=== PATIENT | male | born 1990 | race Caucasian/White ===

== ENCOUNTER → 2016-06-30 06:28 | Day surgery (SDC) | payer OTHER ==
--- NOTE | 2016-06-24 15:07 | HP ---
PREOPERATIVE HISTORY AND PHYSICAL: DATE OF SURGERY: 06/30/16 - [facility] PROCEDURE: Revision of right shoulder subpectoral biceps tenodesis, possible arthroscopic labral repair and possible decompression. CHIEF COMPLAINT: Right shoulder pain. HISTORY OF PRESENT ILLNESS: This is a 26-year-old male who presents to the clinic with history of a right shoulder labral repair. He presents with persistent pain, especially with rock climbing and overhead movement. He has failed conservative measures and has, therefore agreed to undergo a revision of right shoulder subpectoral biceps tenodesis, possible arthroscopic labral repair and possible decompression. PAST MEDICAL HISTORY: Bipolar depression. PAST SURGICAL HISTORY: LASIK eye surgery in 2017 and labral repair of the right shoulder in 2015, tonsillectomy, and sinus surgery. Denies complications with anesthesia. MEDICATIONS: 1. Seroquel 25 mg 1 by mouth at bedtime. 2. Zoloft 75 mg 1 by mouth every day. 3. Lamictal 25 mg 1 by mouth daily. ALLERGIES: No known drug allergies. FAMILY HISTORY: Denies pertinent family history. SOCIAL HISTORY: He lives with his roommate. He is a student at [employer]. He denies tobacco. He reports occasional alcohol consumption. REVIEW OF SYSTEMS: A 14-point review of systems was reviewed with the patient and positive for current complaints and recent removal of a skin lesion on his chest, otherwise negative. Denies chest pain, shortness of breath, history of DVT or PE, bleeding disorder or complications with anesthesia. PHYSICAL EXAMINATION GENERAL: Well-developed, well-nourished 26-year-old male in no acute distress. VITAL SIGNS: Height 70.5, weight 155. Pulse 72, blood pressure 106/78, respiratory rate 16. BMI 23.3. HEENT: Normocephalic, atraumatic, PERRLA. NECK: Supple. Throat clear. PULMONARY: Lungs are clear to auscultation bilaterally. No wheezing, rhonchi, or rales. CARDIOVASCULAR: Regular rate and rhythm. S1 and S2. No murmurs, gallops, or rubs. No edema. ABDOMEN: Positive bowel sounds. Soft and nontender. NEUROLOGIC: Alert and oriented x3. Cranial nerves are grossly intact. Sensation is intact to light touch distally. MUSCULOSKELETAL: Right upper extremity skin is intact. No erythema or warmth. Well-healed surgical incisions. Forward flexion 180 degrees, abduction to 180, external rotation to 75, internal rotation to T8. +5/5 strength to supraspinatus and infraspinatus bear hug. Positive [place], mildly positive Neer and Collado, mildly positive Latha test, 1 to 2+ anterior-posterior shift, +2 radial pulses. Sensation is intact to intact to light touch distally. DIAGNOSTIC STUDIES/LAB DATA: MR arthrogram demonstrates a SLAP tear with some evidence of anterior labrum being retorn, as well as patulous posterior capsule that may be a partial tear of the posterior labrum. IMPRESSION: Right shoulder superior labral tear. PLAN: The patient is scheduled to undergo a revision right shoulder subpectoral biceps tenodesis, possible arthroscopic labral repair and possible decompression with Dr. Bach on 06/30/16. He will return to office 10 to 14 days postoperatively for followup and suture removal. Percocet will be used for postoperative pain management. SVITLANA RIBEIRO [id number]/[facility] #: [id number] MTDDeepa
[~2016-06-30 06:28] MED LIST: Atracurium* 10 MG/ML 10 ML VIAL ONE; Buffered Lidocaine 1% SYRIN* 3 ML/SYR SYRINGE INTRADERM ONE; Bupivacaine 0.25% SDV* 30 ML ONE; Dexamethasone IV* 4 MG/ML 1 ML (4 MG) IV SLOW PU ONE; Dexamethasone IV* 4 MG/ML 1 ML (4 MG) ONE; Famotidine IV* 10 MG/ML 2 ML (20 mg) IV ONE; Famotidine IV* 10 MG/ML 2 ML (20 mg) ONE; Midazolam* 1 MG/ML 5 ML VIAL (5 MG) ONE; Ondansetron INJ* 2 MG/ML VIAL IV PRN; ROPIVACAINE 5 MG/ML 30 ML BTL (0.5%) ONE; ceFAZolin 2 GM PREMIX(*) 2 GM/50 ML BAG IVPB ONE; fentaNYL* 50 MCG/ML 2 ML VIAL (100 MCG VIAL) IV PRN; fentaNYL* 50 MCG/ML 2 ML VIAL (100 MCG VIAL) ONE; oxyCODONE/Acetamin 5/325 MG* TAB PO PRN
[2016-06-30 12:16] VITALS: BP 131/81
--- NOTE | 2016-07-01 01:50 | OP ---
DATE OF OPERATION: 06/30/16 - [facility] DATE OF : 89 ATTENDING SURGEON: Thony Bach MD REFINERY OPERATOR LIGHT ENDS RECOVERY: SVITLANA Jones. An electrical assistant was needed for the entirety of case to help with positioning, retraction, and was utilized throughout all portions of the case. ANESTHESIOLOGIST: Dr. Lombardi. ANESTHESIA: General with interscalene block. PREOPERATIVE DIAGNOSIS: Right shoulder bicipital tendonitis impingement as well as possible labral re-tear. POSTOPERATIVE DIAGNOSIS: Bicipital tendonitis, stable labrum and subacromial impingement. OPERATIVE PROCEDURES: 1. Right shoulder arthroscopy with glenohumeral debridement. 2. Subacromial decompression with acromioplasty. 3. Subpectoral biceps tenodesis. IMPLANTS: One Q-Fix anchor. INDICATIONS: Eliceo is a 26-year-old male who had a previous shoulder anterior and posterior labral repair in 2016. He has had persistent symptoms of bicipital tendonitis and a SLAP tear with some subtle instability sensation. He has failed conservative management and has elected to proceed with operative management. The risks and benefits of the surgery were discussed at length but not limited to bleeding; infection; damage to nerves, vessels, and surrounding structures; retear; failure of the repair; risk of anesthesia; stiffness; persistent pain; scarring; need for further surgery; risk of arthritis; and risk of DVT and he has elected to proceed. DESCRIPTION OF PROCEDURE: The patient was greeted in the preoperative area by the attending surgeon. Correct extremity was marked and consent was confirmed. The patient was brought back to the operating suite where he was placed in supine position on the operating table. He then underwent interscalene nerve block, which he tolerated without difficulty. He then underwent general anesthesia endotracheal intubation after which the examination placed and the examination of the shoulder was done. He was found to have 1+ anterior and posterior glide and an unimpressive sulcus sign and full range of motion. The patient was then placed in left lateral decubitus position and supported with pegboard. All bony prominences were padded. The right shoulder was then suspended from the traction frame with 10 pounds of traction. After which the right shoulder was prepped and draped in the usual sterile fashion with chlorhexidine soap and alcohol wipe and a final prep with ChloraPrep. After appropriate surgical pause indicating side, site, procedure, and administration of antibiotics, the standard postero-lateral portal was made sharply with an 11 blade. The scope was introduced into the joint. The joint was very difficult to get in to due to the previous surgery, but eventually the joint was accessed atraumatically. The glenoid was found to have grade 1 changes with mild fraying in the humeral head with grade 1 changes with no unstable flaps. There was a Hill-Sachs lesion, which was very mild. The anteroposterior labrum were intact; however, there was unstable fraying. The biceps was identified and the superior labrum was intact, but there was abundant tendonitis and tendinopathy apparent. The undersurface of the rotator cuff was intact, but there was evidence of jaime damage. The subscapularis was intact. The inferior recess was intact. The shoulder appeared to be sitting appropriately. There was no evidence of any recurrent instability and no evidence of a labral tear. At this point, the anterior portal was made in an outside-in fashion. The shaver was used to do a small chondroplasty as well as debride the anteroposterior labrum. The biceps was then tenotomized using arthroscopic biter and the stump was debrided back. All fluid and debris was removed from the joint intraarticularly and the scope was placed in the subacromial space. The lateral portal was made in an outside-in fashion. There was abundant bursa that was present. The rotator cuff was examined and found to be intact. The bursa was removed in its entirety and the undersurface of the acromion was skeletonized using the electrocautery device. There was found to have a moderate-sized spur and 4.0 oval bur was then used to do an acromioplasty, which extended into coplaning the distal clavicle; however, the patient did not have distal clavicle symptoms, therefore, no distal clavicle excision was done, just the inferior spur was removed. All loose debris and tissue were removed and at this point, attention was directed to the biceps tenodesis. The bed was air-planed to the right side and the anterior aspect of the shoulder was re-prepped using ChloraPrep. A 15- blade was then used to make an incision in line with the biceps tendon. Soft tissue dissection was done with Metzenbaum scissors and until the pec tendon was identified. Once this was done , the remainder of the dissection was done bluntly. The [place] blade was then used to elevate the pec superiorly. The biceps was then palpated in the groove. A small flory in the biceps groove was then made using the electrocautery device. The biceps was removed and found to have abundant synovitis as well as tendonitis and mild tendinopathy as well. This was scarred into the groove. The groove was then prepared in the usual fashion with the electrocautery device, the red ball rasp as well as an osteotome to allow for bleeding bony edge. The Q-Fix drill guide was then used to drill unicortically. The Q-Fix anchor was deployed with excellent purchase. The sutures were then passed through the tendon approximately 1 cm proximal to the musculo-tendinous junction. The excess stump was then excised and the biceps was shuttled back into the groove and then tied down. This allowed for an excellent fixation. The wound was then copiously irrigated with sterile saline. The anterior wound was closed in layers with 2-0 Vicryl and 3-0 Monocryl. The portal sites were closed with 3-0 nylon. A 20 cc of 0.25% Marcaine were placed in the anterior wound. Sterile dressings were applied with a Cryo/Cuff and an UltraSling. He was awoken from anesthesia and transferred to the PACU in stable condition. POSTOPERATIVE PLAN: He will be nonweightbearing for 4 weeks. He will be allowed to work on elbow, wrist, and hand range of motion as well as pendulum. He will be starting therapy next week. I will see the patient back in 10 to 14 days. He will be discharged on pain medications as well as antibiotics. DVT prophylaxis was considered, but deferred due to no previous personal or family history. I will see the patient back in 10 to 14 days. [id number]/[facility] #: [id number] [facility] CENTERDeepa
== END | disposition home or self-care (01) ==
LOC: OREAST 06:28
PROVIDERS: ATTEND Orthopaedic Surgery
DX: M75.41 Impingement syndrome of right shoulder (principal); M75.21 Bicipital tendinitis, right shoulder; F31.9 Bipolar disorder, unspecified
CPT/HCPCS: C1776; J0690; J1100; J2250; J2795; J3010

== ENCOUNTER 2016-07-05 16:48 | Emergency (ER) | payer OTHER ==
[2016-07-05] MEDS ORDERED: Acetaminophen TAB* 325 MG PO ONE (19:20)
--- NOTE | 2016-07-05 20:06 | ED ---
Frantz Slaughter Anna, scribed for Kendall Taylor MD on 07/05/16 at 1928 . Upper Extremity Pain - HPI Summary HPI Summary: Patient is a 26 y/o male coming to [facility] presenting with the gradual onset of constant, worsening right armpit pain that began two days ago. He describes the severity of the pain as 4/10. The patient feels as though he has a lump in his right armpits, as if he has been poked by a hot poker. He also has a fever that began today, which he recorded as 101.1 at home. He had some nausea last night. He has additionally had a THOMAS and chills. The patient had right shoulder surgery five days ago. He called his surgeons office [facility], who recommended that he be seen. He has not seen his doctor since the surgery. He is scheduled for follow up this week. - History of Current Complaint Chief Complaint: EDExtremityUpper Stated Complaint: POST OP FEVER,PAIN Time Seen by Provider: 07/05/16 19:18 Hx Obtained From: Patient Onset/Duration: Started Days Ago, Still Present Timing: Constant Severity Initially: Moderate Severity Currently: Moderate Pain Location: Other: - right armpit Character: Burning Related History: Other: - Shoulder surgery five days ago - Allergies/Home Medications Allergies/Adverse Reactions: Allergies Allergy/AdvReac Type Severity Reaction Status Date / Time No Known Allergies Allergy Verified 06/30/16 06:39 PMH/Surg Hx/FS Hx/Imm Hx Endocrine/Hematology History: Denies: Hx Diabetes Cardiovascular History: Denies: Hx Hypertension, Hx Pacemaker/ICD History: Denies: Hx Renal Disease Sensory History: Denies: Hx Contacts or Glasses, Hx Hearing Aid Opthamlomology History: Denies: Hx Contacts or Glasses Neurological History: Reports: Other Neuro Impairments/Disorders - bipolar disorder Psychiatric History: Denies: Hx Panic Disorder - Surgical History Surgery Procedure, Year, and Place: RT SHOULDER SURGERY 01/2015 and 06/2016. SINUSES AT AGE 7. LASIK EYE CORRECTIVE VISION Hx Anesthesia Reactions: No Infectious Disease History: Denies: Traveled Outside the [place] in Last 30 Days - Family History Known Family History: Positive: Cardiac Disease, Other - FHx Alzheimer's, alcoholism, skin CA - Social History Alcohol Use: Occasionally Substance Use Type: Reports: None Smoking Status (MU): Never Smoked Tobacco Review of Systems Positive: Fever, Chills Positive: Nausea Positive: Myalgia - right armpit pain Positive: Headache All Other Systems Reviewed And Are Negative: Yes Physical Exam Triage Information Reviewed: Yes Vital Signs On Initial Exam: Initial Vitals Temp Pulse Resp BP Pulse Ox 99.7 F 106 16 118/63 99 07/05/16 17:00 07/05/16 17:00 07/05/16 17:00 07/05/16 17:00 07/05/16 17:00 Vital Signs Reviewed: Yes Appearance: Positive: Well-Appearing, No Pain Distress Skin: Positive: Warm, Other - healing surgical site, no drainage, few axillary nadenopathy Head/Face: Positive: Normal Head/Face Inspection Eyes: Positive: MARZENA ENT: Positive: Hearing grossly normal Neck: Positive: Supple Respiratory/Lung Sounds: Positive: Breath Sounds Present Cardiovascular: Positive: RRR Musculoskeletal: Positive: Strength/ROM Intact Neurological: Positive: Alert, Oriented to Person Place, Time Psychiatric: Positive: Affect/Mood Appropriate Diagnostics - Vital Signs Vital Signs Temp Pulse Resp BP Pulse Ox 07/05/16 18:00 100.2 F 101 18 116/75 100 07/05/16 17:00 99.7 F 106 16 118/63 99 - Laboratory Result Diagrams: 07/05/16 20:06 07/05/16 20:06 Lab Statement: Any lab studies that have been ordered have been reviewed, and results considered in the medical decision making process. Course/Dx - Course Assessment/Plan: Patient is a 26 y/o male coming to [facility] presenting with the gradual onset of constant, worsening right armpit pain that began two days ago. He describes the severity of the pain as 4/10. The patient feels as though he has a lump in his right armpits, as if he has been poked by a hot poker. He also has a fever that began today, which he recorded as 101.1 at home. He had some nausea last night. He has additionally had a THOMAS and chills. The patient had right shoulder surgery five days ago. He called his surgeons office rod[facility] , who recommended that he be seen. He has not seen his doctor since the surgery. He is scheduled for follow up this week. The patient was given acetaminophen in the ED course. Flu test was negative. Labs reveal chloride of 100, AST of 12, Alkaline phosphatase of 33, Hgb of 13.7, Hct of 40, Lymph % of 9.3, absolute lymphs of 0.9. Patient will be discharged with follow up from orthopedics physician. Patient is agreeable with plan. - Diagnoses Provider Diagnoses: Febrile illness Discharge - Discharge Plan Condition: Stable Disposition: HOME Patient Education Materials: Fever in Adults (ED) [facility]: [facility] [Primary Care Provider] - Gayla Kirkpatrick PA [Physician Handle Turner] - Thony Bach MD [Family Provider] - Additional Instructions: Follow up with your orthopedics provider within 48 hours. Take Tylenol or Motrin as needed for your fever. Return to the Emergency Department for new or worsening symptoms. The documentation as recorded by the Frantz lares Anna accurately reflects the service I personally performed and the decisions made by , Kendall Taylor MD.
[2016-07-05 20:19] LABS: Hematocrit 40 % (42-52); Hemoglobin 13.7 g/dl (14.0-18.0); Mean Corpuscular HGB Conc 34 g/dl (31-36); Mean Corpuscular Hemoglobin 29 pg (27-31); Mean Corpuscular Volume 85 fL (80-94); Mean Platelet Volume 8 um3 (7.4-10.4); Red Blood Count 4.71 10^6/ul (4.0-5.4); Red Cell Distribution Width 13 % (10.5-15); White Blood Count 9.4 10^3/ul (3.5-10.8)
[2016-07-05 20:31] LABS: Albumin 4.5 g/dL (3.2-5.2); BUN/Creatinine Ratio 11.1 (8-20); Calcium 9.2 mg/dL (8.6-10.3); EGFR African American 117.5 (>60); EGFR Non-African American 91.4 (>60); Globulin 2.7 g/dL (2-4); Potassium 3.8 mmol/L (3.5-5.0); Total Bilirubin 0.8 mg/dL (0.2-1.0); Total Protein 7.2 g/dL (6.4-8.9)
[2016-07-05 21:28] VITALS: BP 110/73
== END 2016-07-05 21:28 | disposition home or self-care (01) ==
LOC: ED 16:48
DX: R50.9 Fever, unspecified (principal); R51 Headache; M79.1 Myalgia
CPT/HCPCS: 36415; 80053; 85025; 87502; 99282; A9270-GY

== ENCOUNTER 2019-04-11 11:25 | Day surgery (SDC) | payer OTHER ==
[~2019-04-11 11:25] MED LIST changes: -Atracurium* 10 MG/ML 10 ML VIAL ONE; +Buffered Lidocaine 1% SYRIN* 1 ML/SYRINGE INTRADERM ONE; -Buffered Lidocaine 1% SYRIN* 3 ML/SYR SYRINGE INTRADERM ONE; -Bupivacaine 0.25% SDV* 30 ML ONE; -Dexamethasone IV* 4 MG/ML 1 ML (4 MG) IV SLOW PU ONE; +Dexamethasone TAB* 4 MG ONE; +Dexamethasone TAB* 4 MG PO ONE; +DiMENhydriNATE IV* 50 MG/ML VIAL IV PUSH PRN; +EPHEDrine (Pressors)* 50 MG/ML VIAL ONE; +HYDROmorphone INJ1* 1 MG/ML SYRINGE IV PRN; +KETAMINE HCL* 50 MG/ML 10 ML VIAL ONE; +Lactated Ringers 1000 ML Bag* 1,000 ML IV SCH; +Naloxone* 0.4 MG/ML 1 ML VIAL IV PRN; -Ondansetron INJ* 2 MG/ML VIAL IV PRN; +Ondansetron ODT TAB* 4 MG ONE; +Ondansetron ODT TAB* 4 MG PO ONE; +PROCHLORPERAZINE INJ 5 MG/ML 2 ML VIAL IV PRN; -ROPIVACAINE 5 MG/ML 30 ML BTL (0.5%) ONE; -ceFAZolin 2 GM PREMIX(*) 2 GM/50 ML BAG IVPB ONE; +oxyCODONE TAB* 5 MG TAB PO PRN; -oxyCODONE/Acetamin 5/325 MG* TAB PO PRN
[2019-04-11] MEDS ORDERED: ceFAZolin 2 GM PREMIX in ORs 2 GM/50 ML BAG ONE (11:46)
[2019-04-11] MEDS ORDERED: Acetaminophen IV 1GM/100ML * 100 ML ONE (13:00)
[2019-04-11] MEDS ORDERED: Propofol* 10 MG/ML 20 ML BTL ONE (13:00)
[2019-04-11] MEDS ORDERED: Ketorolac INJ* 30 MG/ML 1 ML VIAL ONE (13:00)
[2019-04-11] MEDS ORDERED: oxyCODONE ORAL.SOLN* 5 MG/5 ML UDC ONE (14:41)
[2019-04-11 15:10] VITALS: BP 126/79
--- NOTE | 2019-04-19 00:07 | OP ---
DATE OF OPERATION: 04/11/19 - [facility] DATE OF : 89 ATTENDING SURGEON: Thony Bach MD SWINE GENETICS RESEARCHER: SVITLANA Acosta. An ambulance assistant was needed for the entirety of the case to help with positioning, retraction, and utilized throughout all portions of the case. ANESTHESIOLOGIST: Dr. Wilson. ANESTHESIA: General interscalene block. PRE-OP DIAGNOSIS: POST-OP DIAGNOSIS: OPERATIVE PROCEDURES: Right shoulder revision arthroscopy with; 1. Extensive glenohumeral debridement. 2. Removal of loose bodies, suture and anchor x1. 3. Revision subacromial decompression. 4. Rotator cuff repair with Regeneten patch. COMPLICATIONS: None. ESTIMATED BLOOD LOSS: Minimal. IMPLANTS: One size large Regeneten patch. INDICATIONS: Eliceo Mg is a 29-year-old male who has had previous surgery on his shoulder. His first surgery was a labral repair. Second surgery was done by me, which is a biceps tenodesis and decompression. He had persistent symptoms and laterally based pain. He sought 2 opinions. After extensive discussion of risks and benefits of operative versus nonoperative treatment, he has elected to proceed with surgical treatment. Risks include, but not limited to bleeding; infection; damage to nerve, vessels, surrounding structures; wound nonhealing; persistent pain; need for surgery; scarring; stiffness; incomplete relief of symptoms; and risks of anesthesia. DESCRIPTION OF PROCEDURE: The patient was greeted in the preoperative area by the attending surgeon. Correct extremity was marked and consent was confirmed. The patient then underwent interscalene nerve block, after which he was brought back to the operative suite, placed in supine position on the operating table. He underwent general anesthesia with LMA intubation, after which he was placed in left lateral decubitus position. All bony prominences were padded and secured with a peg board. The right shoulder was draped unsterile with 10 pounds of traction. The right shoulder was then prepped and draped in usual sterile fashion using chlorhexidine soap, scrub, alcohol wipe, and a final prep of ChloraPrep. After appropriate surgical pause indicating site, side, procedure, administration of antibiotics, a standard posterolateral portal was made sharply with 11 blade. Scope was introduced through the joint. There was significant abundant scar tissue that was present and cannula placement was quite difficult, however, the joint was examined. There was some areas of grade 3 changes with small area of grade 4 very closer to the cuff insertion, but not at the cuff insertion. There was evidence of chondrosis as well and the glenoid as well with grade 2 changes. There was no evidence of instability. There was some fraying of the anterior labrum, which was debrided back. As the labrum was debrided, there was a small discolored area that was visualized. We eventually used a grasper to expose it and identified a knot stack that was sitting on the glenoid surface, which was not where it should be. This was removed and as it was removed, this had to be cut at its base. The anchor that was unused, which looked like a PEEK anchor was protruding and was rubbing against the cartilage. This was also removed in its entirety. Once this was complete, there were no evidence of any further loose pieces. After this was completed and a small chondroplasty was done on the glenoid, attention was directed to the subacromial space. The undersurface of the rotator cuff had some very mild partial fraying and changes. The scope was positioned in the subacromial space. Lateral portal was made in an outside-in fashion. A shaver was used to debride back the abundant bursal fraying that was present. In the scar tissue, there was an anterolateral spur that was still remaining and this was removed using a 4-0 oval malgorzata after the undersurface was skeletonized with electro-cautery device. The CA ligament was peeled back. Attention was then directed to the rotator cuff. There was abundant bursa that was attached to it and there was a small area of some mild fraying. The patient's symptoms were all rotator cuff related, a lot of fraying was mild , decision was made to treat this as a revision decompression with Regeneten patch. A size large Regeneten patch was brought to the field and placed under arthroscopic and direct visualization. This was secured medially with tendon maxwell through separate incision and laterally with PEEK maxwell. The graft was found to be well secured. Final images were obtained. The wounds were then copiously irrigated with sterile saline and closed with 3-0 nylon interrupted fashion. Sterile dressings were applied. A Cryo/Cuff and a regular sling were applied. He was awoken from anesthesia and transferred to PACU in stable condition. POSTOPERATIVE PLAN: He will be nonweightbearing. He will be in a sling and start range of motion immediately. He will be discharged on pain medication and antibiotics due to revision surgery. I will see the patient back in 10 to 14 days. [id number]/[facility] #: [id number] MTDD
== END 2019-04-11 15:10 | disposition home or self-care (01) ==
LOC: OREAST 11:25
PROVIDERS: ATTEND Orthopaedic Surgery
DX: M75.41 Impingement syndrome of right shoulder (principal); M75.111 Incomplete rotator cuff tear or rupture of right shoulder, not specified as traumatic; M25.511 Pain in right shoulder; F32.9 Major depressive disorder, single episode, unspecified; F41.8 Other specified anxiety disorders; G89.18 Other acute postprocedural pain
CPT/HCPCS: A9270-GY; C1713; J0690; J1100; J1885; J2250; J2704; J3010; J8540

== ENCOUNTER 2023-08-03 13:31 | Observation (INO) ==
[2023-08-03 15:12] LABS: ABS Basophils 0.1 10^3/uL (0.0-0.1); ABS Eosinophils 0.1 10^3/uL (0.0-0.5); ABS Lymphocytes 1.7 10^3/uL (1.0-4.8); ABS Monocytes 0.7 10^3/uL (0.0-1.1); ABS Neutrophils 7.7 10^3/uL (1.5-7.6); Eosinophil % 1.3 %; Hematocrit 39.6 % (38-53); Hemoglobin 14.1 g/dL (13.2-16.3); Lymphocyte % 16.4 %; Mean Corpuscular Hemoglobin 30.9 pg (27-33); Mean Corpuscular Hgb Conc 35.5 g/dL (31-36); Mean Corpuscular Volume 86.8 fL (80-97); Platelet Count 260 10^3/uL (150-450); Red Blood Count 4.56 10^6/uL (4.06-5.63); Red Cell Distribution Width 12.8 % (12-17); White Blood Count 10.3 10^3/uL (3.6-10.2)
[2023-08-03 15:28] LABS: INR 0.96 (0.83-1.13)
[2023-08-03 15:48] LABS: Albumin 5.1 g/dL (3.2-5.2); Albumin/Globulin Ratio 2.7 (1-3); Calcium 9.7 mg/dL (8.6-10.3); Creatinine, Serum 1.31 mg/dL (0.67-1.17); Globulin 1.9 g/dL (2-4); Potassium 4.3 mmol/L (3.5-5.0); Total Bilirubin 0.3 mg/dL (0.2-1.0); eGFR CKD-EPI 73.7 (>60)
[2023-08-03] MEDS: Iohexol 350 (CONTRAST) 500 ML MDV IV ONE (16:42)
[2023-08-03 17:13] LABS: C Reactive Protein < 1.00 mg/L (<8.01)
[2023-08-03 18:36] LABS: HIV 4th Generation Nonreactive (Nonreactive)
[2023-08-03] MEDS ORDERED: Albuterol HFA INHALER 8 gm MDI INH PRN (22:55)
[2023-08-03] MEDS: Gadoteridol (CONTRAST) 279.3 MG/ML 10 ML IV ONE (23:14)
[2023-08-04 06:33] LABS: ABS Basophils 0.1 10^3/uL (0.0-0.1); ABS Eosinophils 0.2 10^3/uL (0.0-0.5); ABS Monocytes 0.7 10^3/uL (0.0-1.1); ABS Neutrophils 3.6 10^3/uL (1.5-7.6); Eosinophil % 2.4 %; Hematocrit 38.3 % (38-53); Hemoglobin 13.3 g/dL (13.2-16.3); Lymphocyte % 30.8 %; Mean Corpuscular Hemoglobin 30.2 pg (27-33); Mean Corpuscular Hgb Conc 34.7 g/dL (31-36); Mean Corpuscular Volume 87.2 fL (80-97); Mean Platelet Volume 7.8 fL (7.5-11.2); Platelet Count 215 10^3/uL (150-450); Red Cell Distribution Width 12.8 % (12-17); White Blood Count 6.4 10^3/uL (3.6-10.2)
[2023-08-04 06:59] LABS: Calcium 9.1 mg/dL (8.6-10.3); Creatinine, Serum 1.28 mg/dL (0.67-1.17); Magnesium 2.3 mg/dL (1.9-2.7); Potassium 4.5 mmol/L (3.5-5.0); eGFR CKD-EPI 75.8 (>60)
[2023-08-04 07:12] LABS: TSH Ultra Thyroid Stim Horm 2.3 mcIU/mL (0.34-5.60)
[2023-08-04] MEDS: Cholecalciferol (VIT D3) 1,000 unit TAB PO SCH ×2 (07:56→08:30)
[2023-08-04] MEDS ORDERED: Enoxaparin 40 MG/0.4 ML SYR SUBCUT SCH (08:00)
[2023-08-04] MEDS: CMCS: Lithium Carb ER 300 mg TAB(NF) PO SCH (08:31)
[2023-08-04] MEDS: Lactated Ringers 1000 ml BAG 500 ML IV ONE (09:48)
[2023-08-04 13:49] VITALS: BP 119/67
[2023-08-04 17:50] LABS: Lithium 0.42 mmol/L (0.6-1.2)
[2023-08-06 16:19] LABS: Anaplasma phagocytophilum Negative (Negative); B. miyamotoi PCR, B Negative (Negative); Babesia divergens/MO-1 Negative (Negative); Babesia ducani Negative (Negative); Ehrlichia chaffeensis Negative (Negative); Ehrlichia ewingii/canis Negative (Negative); Ehrlichia muris eauclairensis Negative (Negative)
[2023-08-06 16:23] LABS: Phospholipid Ab IgG < 9.4 GPL; Phospholipid Ab IgM, S < 9.4 MPL
[2023-08-07 16:37] LABS: Phospholipid (Cardiolipin) IgA < 9.4 APL
== END 2023-08-04 18:38 | disposition home or self-care (01) ==
LOC: ED 13:31 → EDHOLD 13:31 → SUATTDRO 21:08 → MEDTELE 08-04 00:17
PROVIDERS: ADMIT Student in an Organized Health Care Education/Training Program; ATTEND Hospitalist